=== PATIENT | male | born 1995 | race Hispanic/Latino ===

== ENCOUNTER 2018-01-15 08:58 | Emergency (ER) | payer OTHER ==
[2018-01-15] MEDS ORDERED: LIDOCAINE HCL-MPF 1% 2ML VIAL ONE (09:12)
[2018-01-15] MEDS ORDERED: CEFTRIAXONE SODIUM 1 GM ONE (09:12)
[2018-01-15] MEDS ORDERED: IBUPROFEN 600 MG TABLET ONE (09:13)
== END 2018-01-15 09:24 | disposition home or self-care (01) ==
LOC: EDH 08:58
DX: K04.7 Periapical abscess without sinus (principal); Z87.891 Personal history of nicotine dependence
CPT/HCPCS: 96372; 99283; J0696; J3490

== ENCOUNTER 2018-01-24 20:03 | Emergency (ER) | payer OTHER ==
[2018-01-24] MEDS ORDERED: DEXAMETHASONE SOD PHOSPHATE 10MG/ML 1ML VIAL ONE (20:20)
[2018-01-24] MEDS ORDERED: DIPHENHYDRAMINE HCL 25 MG CAPSULE ONE (20:20)
== END 2018-01-24 21:23 | disposition home or self-care (01) ==
LOC: EDH 20:03
DX: L30.9 Dermatitis, unspecified (principal)
CPT/HCPCS: 96372; 99283; J1100; Q0163

== ENCOUNTER 2018-12-09 22:37 | Emergency (ER) | payer OTHER | END 2018-12-10 00:10 | disposition home or self-care (01) | LOC: EDH 22:37 | DX: S01.112A Laceration without foreign body of left eyelid and periocular area, initial encounter (principal); Z72.0 Tobacco use; Z88.6 Allergy status to analgesic agent; W22.8XXA Striking against or struck by other objects, initial encounter; Y93.89 Activity, other specified; Y92.89 Other specified places as the place of occurrence of the external cause; Y99.8 Other external cause status | CPT/HCPCS: 99281 ==

== ENCOUNTER → 2019-02-15 | Outpatient (CLI) | payer OTHER ==
[2019-02-15 12:52] LABS: BASOPHILS % (AUTO) 0.8 % (0.0-5.0); EOSINOPHILS % (AUTO) 1.7 % (0.0-8.0); HEMATOCRIT 55.1 % (42-54); LYMPHOCYTES % (AUTO) 16.2 % (21.0-51.0); MEAN CORPUSCULAR HEMOGLOBIN 30.4 pg (27.0-33.0); MEAN CORPUSCULAR HGB CONC 34.2 g/dL (32.0-36.0); MEAN CORPUSCULAR VOLUME 88.7 fL (79-99); MONOCYTES % (AUTO) 4.6 % (3.0-13.0); NEUTROPHILS % (AUTO) 76.7 % (40.0-77.0); NUCLEATED RED BLOOD CELLS 0.1 % (0.0-0.19); PLATELET COUNT (AUTO) 233 K/uL (130-400); RED BLOOD CELL COUNT(AUTO) 6.21 MIL/uL (4.50-6.20); RED CELL DISTRIBUTION WIDTH 13.3 % (11.0-15.5); WHITE BLOOD COUNT (AUTO) 8.6 K/uL (4.8-10.8)
[2019-02-15 13:00] LABS: HEMOGLOBIN A1C 9.7 % (4.0-6.0)
[2019-02-15 13:14] LABS: ALBUMIN 4.1 g/dL (3.5-5.0); BILIRUBIN,TOTAL 0.7 mg/dL (0.2-1.0); CREATININE 0.9 mg/dL (0.5-1.5); POTASSIUM 3.9 mmol/L (3.5-5.1); THYROID STIMULATING HORMONE 0.9 uIU/mL (0.36-3.74); TOTAL PROTEIN, SERUM 7.9 g/dL (6.0-8.3)
== END | disposition home or self-care (01) ==
LOC: LAB 12:00
PROVIDERS: ATTEND Internal Medicine
DX: Z00.01 Encounter for general adult medical examination with abnormal findings (principal); Z13.29 Encounter for screening for other suspected endocrine disorder; Z13.1 Encounter for screening for diabetes mellitus; Z13.21 Encounter for screening for nutritional disorder; Z13.220 Encounter for screening for lipoid disorders
CPT/HCPCS: 36415; 80053; 80061; 82150; 82306; 83036; 83690; 84443; 84681; 85025

== ENCOUNTER 2019-04-01 20:18 | Emergency (ER) | payer OTHER ==
[2019-04-01] MEDS ORDERED: IBUPROFEN 600 MG TABLET ONE (21:00)
== END 2019-04-01 21:35 | disposition home or self-care (01) ==
LOC: EDH 20:18
DX: S63.591A Other specified sprain of right wrist, initial encounter (principal); Z88.6 Allergy status to analgesic agent; W50.0XXA Accidental hit or strike by another person, initial encounter; Y93.89 Activity, other specified; Y92.69 Other specified industrial and construction area as the place of occurrence of the external cause; Y99.0 Civilian activity done for income or pay
CPT/HCPCS: 73110

== ENCOUNTER 2019-06-01 18:55 | Emergency (ER) | payer OTHER | END 2019-06-01 19:10 | disposition home or self-care (01) | LOC: EDH 18:55 | DX: H92.01 Otalgia, right ear (principal); Z88.5 Allergy status to narcotic agent ==